=== PATIENT | male | born 1985 | race Caucasian/White ===

== ENCOUNTER 2021-07-11 12:51 | Observation (INO) | payer MEDICAID, SELFPAY ==
[2021-07-11 12:54] VITALS: BP 148/97; PULSE 63; RESP 15; TEMP 36.2; O2SAT 100; BMI 27.1
--- NOTE | 2021-07-11 13:11 | EX.ED.SAOD ---
HPI History of Present Illness Chief Complaint: Substance Abuse Narrative Narrative: 35-year-old male presenting for detox from heroin. He states he also uses methamphetamine and marijuana. Patient last used heroin yesterday. He last used methamphetamine 2 days ago. Patient states that he is restless currently. He took Suboxone earlier which she feels may have precipitated withdrawal. Patient states he snorts drugs and does not inject. PFSH PFSH Home Medications NK 07/11/21 [History Last Taken Unknown] Allergy/AdvReac Type Severity Reaction Status Date / Time Penicillins [PCN] Allergy PT UNSURE Verified 07/11/21 12:52 OF REACTION tramadol Allergy Other Verified 07/11/21 12:52 Social History Smoking Status: Former smoker ROS ROS ED Constitutional Constitutional ED: Denies chills, fever(s) or sweats Eyes Eyes: Denies blurry vision or diplopia ENT ENT ED: Denies rhinorrhea or sore throat Cardiovascular Cardiovascular: Denies chest pain, palpitations or racing heartbeat Respiratory/Chest Respiratory/Chest: Denies cough, dyspnea or sputum Gastrointestinal Gastrointestinal: Denies abdominal pain, diarrhea, nausea or vomiting Genitourinary Genitourinary ED: Denies dysuria Musculoskeletal Musculoskeletal: Denies arthralgias or myalgias Integumentary Denies abscess or rash Neurologic Neurologic: Denies headache(s) or paresthesias Psychiatric Psychiatric: Denies suicidal ideation or suicidal thoughts EXAM Physical Exam Const Vital Signs: 07/11/21 12:54 Temperature 97.1 F L Temperature Source Temporal Pulse Rate 63 Respiratory Rate 15 Blood Pressure 148/97 H Blood Pressure Mean 114 Pulse Ox 100 Oxygen Delivery Method Room Air Positive well nourished General Appearance ED: NAD; Negative for pallor HEENT Reports normocephalic, head/scalp atraumatic and moist mucous membranes atraumatic Eyes PERRL and EOMs intact bilaterally Neck no lymphadenopathy and supple Chest Wall inspection of chest normal and palpation of chest normal Resp normal respiratory effort and clear to auscultation bilaterally Auscultation: Negative for rales, rhonchi or wheezes Cardio regular rate and regular rhythm GI normal to inspection, nondistended, normoactive bowel sounds and non-distended Auscultation: normoactive bowel sounds Palpation: soft Narrative: Deferred Extremity normal to inspection General Extremety ED: Yes edema and tenderness General Extremity: edema Neuro oriented x3 and CN's II-XII intact bilaterally Sensorium / Orientation: alert Motor Exam: strength 5/5 throughout Psych mental status grossly normal Attitude: No agitated Skin no rashes or lesions noted and no wounds General Skin Exam: Negative for jaundice or pallor MDM MDM MDM Narrative Medical decision making narrative: Patient presenting for detox. I will obtain blood work and urine. Patient is medically stable at this time. We will plan to admit the patient after medically cleared. Patient's blood work is unremarkable. Urine drug screen is negative except for cannabinoids. Patient discussed with hospitalist for admission. Transferred in stable condition. Impression: 1. Opioid detox Lab Data Attestation: I reviewed the patient's lab results. Labs: Laboratory Results - last 24 hr 07/11/21 07/11/21 07/11/21 13:03 13:05 13:05 WBC 9.1 RBC 5.09 Hgb 15.2 Hct 45.9 MCV 90.2 MCH 29.9 MCHC 33.1 RDW Std Deviation 39.9 RDW Coeff of Karolina 12.1 Plt Count 290 MPV 9.5 Immature Gran % (Auto) 0.200 Neut % (Auto) 88.7 H Lymph % (Auto) 7.3 L [place] % (Auto) 3.1 Eos % (Auto) 0.3 Baso % (Auto) 0.4 Absolute Neuts (auto) 8.0 H Absolute Lymphs (auto) 0.66 L Nucleated RBC % 0 Sodium Potassium Chloride Carbon Dioxide Anion Gap BUN Creatinine Estim Creat Clear Calc Est GFR (MDRD) Af Amer Est GFR (MDRD) Non-Af BUN/Creatinine Ratio Glucose Calcium Total Bilirubin AST ALT Alkaline Phosphatase Total Protein Albumin Globulin Albumin/Globulin Ratio Urine Opiates Screen NEGATIVE Urine Methadone Screen NEGATIVE Ur Barbiturates Screen NEGATIVE Ur Phencyclidine Scrn NEGATIVE Ur Amphetamines Screen NEGATIVE U Methamphetamin-MDMA NEGATIVE U Benzodiazepines Scrn NEGATIVE Urine Cocaine Screen NEGATIVE U Cannabinoids Screen POSITIVE H Ur Drug Screen Comment Ethyl Alcohol 3.0 07/11/21 13:05 WBC RBC Hgb Hct MCV MCH MCHC RDW Std Deviation RDW Coeff of Karolina Plt Count MPV Immature Gran % (Auto) Neut % (Auto) Lymph % (Auto) [place] % (Auto) Eos % (Auto) Baso % (Auto) Absolute Neuts (auto) Absolute Lymphs (auto) Nucleated RBC % Sodium 137 Potassium 3.8 Chloride 103 Carbon Dioxide 30.0 Anion Gap 4 L BUN 10 Creatinine 0.80 Estim Creat Clear Calc 138.76 Est GFR (MDRD) Af Amer 138 Est GFR (MDRD) Non-Af 114 BUN/Creatinine Ratio 12.4 Glucose 141 H Calcium 9.0 Total Bilirubin 0.50 AST 25 ALT 26 Alkaline Phosphatase 105 Total Protein 7.6 Albumin 3.7 Globulin 3.9 Albumin/Globulin Ratio 0.9 Urine Opiates Screen Urine Methadone Screen Ur Barbiturates Screen Ur Phencyclidine Scrn Ur Amphetamines Screen U Methamphetamin-MDMA U Benzodiazepines Scrn Urine Cocaine Screen U Cannabinoids Screen Ur Drug Screen Comment Ethyl Alcohol Discharge Plan Triage Chief Complaint: Substance Abuse ED Provider: Ed Logan Dx/Rx/DC Orders Primary Care Provider: Care Physician,No Primary
[2021-07-11 13:15] LABS: Absolute Lymphocyte Count 0.66 X10^3/uL (0.83-4.51); Basophil# 0.04 X10^3/uL; Basophil% 0.4 % (0-1); Eosinophil# 0.03 X10^3/uL; Eosinophils% 0.3 % (0-5); Hematocrit 45.9 % (40-54); Hemoglobin 15.2 g/dL (13.0-16.5); Lymphocyte # 0.66 X10^3/ul (0.83-4.51); Lymphocyte % 7.3 % (19-41); Mean Corp Hgb Conc 33.1 g/dL (32-36); Mean Corpuscular Hgb 29.9 pg (27.0-32.0); Mean Corpuscular Volume 90.2 fL (80-94); Mean Platelet Vol. 9.5 fl (6.2-12.0); Monocyte# 0.28 X10^3/uL; Monocyte% 3.1 % (0-10); NRBC Flagged by Analyzer 0 % (0-5); Neutrophil # 8.04 X10^3/uL (2.7-7.7); Neutrophil % 88.7 % (47-70); Platelet Count 290 K/mm3 (150-450); RBC Distribution Width CV 12.1 % (11.6-14.6); RBC Distribution Width SD 39.9 fl (35.1-43.9); Red Blood Count 5.09 M/mm3 (4.6-6.2); White Blood Count 9.1 K/mm3 (4.4-11.0)
[2021-07-11 13:25] LABS: Amphetamine Urine VISTA NEGATIVE (<1000 ng/mL); Barbiturate Urine VISTA NEGATIVE (< 200 ng/mL); Benzodiazepine Urine VISTA NEGATIVE (< 200 ng/mL); Cocaine Urine VISTA NEGATIVE (< 300 ng/mL); Ecstacy Urine VISTA NEGATIVE (< 500 ng/mL); Methadone Urine VISTA NEGATIVE (< 300 ng/mL); PCP Urine VISTA NEGATIVE (< 25 ng/mL); THC Urine VISTA POSITIVE (< 50 ng/mL); Vista UDS pH Range 7
[2021-07-11 13:28] LABS: ALB/GLOB Ratio 0.9 RATIO (0.9-2.4); AST(SGOT) 25 U/L (15-37); Alanine Aminotransfer ALT/SGPT 26 U/L (16-61); Albumin, Serum 3.7 g/dL (3.2-5.0); Alkaline Phosphatase 105 U/L (45-117); Anion Gap 4 (5-15); BUN 10 mg/dL (7-18); BUN/Creat Ratio 12.4 RATIO (10-20); Chloride 103 mmol/L (98-107); EST Glomerular Filtration Rate 114 mL/min (>60); Est Glom Filt Rate - Afr Amer 138 mL/min (>60); Estimated Creatinine Clearance 138.76 ml/min; Globulin 3.9 g/dL (2.2-4.2); Glucose 141 mg/dL (74-106); Potassium 3.8 mmol/L (3.5-5.1); Protein, Total 7.6 g/dL (6.4-8.2); Sodium Level 137 mmol/L (136-145)
--- NOTE | 2021-07-11 13:49 | HP.PCM.HOS_ITS ---
HPI - General General Date of Admission: 07/11/21 Date of Service: 07/11/21 Chief Complaint: Acute Heroin Withdrawal HPI Narrative The patient is a 35 y/o M w/ PMHx: Polysubstance abuse including Heroin which she reports only snorting with usage of up to 10 g daily progressively increasing over the last 3 years who presents to the [facility] ED on 07/11/21 w/ noted acute opiate withdrawal onset starting on day of presentation following last do se the day prior specifically at 11 PM with abdominal generalized cramping, severe body aches and pains, rhinorrhea, piloerection, fatigue, restless leg as well as notable diaphoresis. Patient interested in attaining clean status and notes that he is never been treated for opiate abuse prior. Work-up in the ED included T 97.1 temporally, heart rate 63, BP 140/97, respiratory rate 15, on her percent room air, CBC with WC 9.1, hemoglobin 15.2, platelet 290 with left shift with mild of PD, CMP with glucose 141 otherwise not marked appearing, UDS with positive cannabis, negative for any opiates, ethyl alcohol 3. [facility] Medical History (Updated 07/11/21 @ 20:[address] Mercy Mora MD) Anxiety Depression Hepatitis Substance abuse Substance use Home Medications NK 07/11/21 [History Last Taken Unknown] Allergy/AdvReac Type Severity Reaction Status Date / Time Penicillins [PCN] Allergy PT UNSURE Verified 07/11/21 12:52 OF REACTION tramadol Allergy Other Verified 07/11/21 12:52 Family History (Updated 07/11/21 @ 20:[address] Mercy Mora MD) Mother CVA (cerebral vascular accident) Hypertension Substance abuse Father CVA (cerebral vascular accident) Hypertension Substance abuse no surgical history Social History (Updated 07/11/21 @ 20:[address] Mercy Mora MD) Smoking Status: Former smoker how long ago did patient quit smoking: Quit ~ 5 months prior, smoked 1 ppd since teen. alcohol intake: never substance use type: heroin ROS ROS Narrative Admission Review of Systems: CONSTITUTIONAL: No weight loss, fever, +chills, weakness or fatigue. HEENT: Eyes: No visual loss, blurred vision, double vision or yellow sclerae. Ears, Nose, Throat: No hearing loss, sneezing, congestion, runny nose or sore throat. SKIN: No rash or itching, lesions, wounds. CARDIOVASCULAR: No chest pain, chest pressure or chest discomfort, palpitations, edema, orthopnea, syncopal events. RESPIRATORY: No shortness of breath, cough or sputum, wheezing, hemoptysis. GASTROINTESTINAL: + anorexia, nausea without vomiting, abdominal pain, No diarrhea, melena, BRBPR. GENITOURINARY: No dysuria, frequency, urgency or retention. NEUROLOGICAL: No headache, dizziness, syncope, paralysis, ataxia, numbness or tingling in the extremities, focal weakness, change in bowel or bladder control, seizure. MUSCULOSKELETAL: + muscle, back pain, joint pain or stiffness. HEMATOLOGIC: No anemia, bleeding or bruising. LYMPHATICS: No enlarged nodes. No history of splenectomy. PSYCHIATRIC: + history of depression or anxiety. ENDOCRINOLOGIC: + reports of sweating, cold or heat intolerance. No polyuria or polydipsia. ALLERGIES: No history of asthma, hives, eczema or rhinitis. Vital Signs Vital Signs Vital Signs: 07/11/21 12:54 Temperature 97.1 F L Temperature Source Temporal Pulse Rate 63 Respiratory Rate 15 Blood Pressure 148/97 H Blood Pressure Mean 114 Pulse Ox 100 Oxygen Delivery Method Room Air Weight Weight: 200 lb Body Mass Index (BMI) 27.1 Physical Exam Narrative Physical Examination: General: Awake, alert, oriented x 3 and cooperative, laying in the ED bed, restless, coated in sweat, evident withdrawal. Skin: Normal color, normal turgor, no icterus, no cyanosis. HEENT: AT/NC, EOMI, PERRLA, dry MM, no carotid bruits or JVD noted. Lungs: Diminished, greater bases, appropriate effort, no rales, ronchi or wheezing. Heart: Mildly bradycardic with regular rhythm; no gallop, rub audible. Abdomen: Soft, mild generalized discomfort with palpation with no rebound or guarding, ND, hyperactive BS, no HSM. Extremities: No cyanosis, clubbing, or edema. Neurological: Patient awake, alert, oriented as noted, cognitive function intact; pupils equally reactive to light and accommodation, cranial nerves II-X II grossly normal, moving all 4 extremities, no focal deficits, strength moderately global decrease secondary to acute presentation. Psychiatric: Affect appears restless, fatigued, no acute evidence of depressive or anxiety feelings. Results Lab / Micro Data Result Diagrams: 07/11/21 13:05 07/11/21 13:05 Labs: Laboratory Results - last 24 hr 07/11/21 13:03: Urine Opiates Screen NEGATIVE, Urine Methadone Screen NEGATIVE, Ur Barbiturates Screen NEGATIVE, Ur Phencyclidine Scrn NEGATIVE, Ur Amphetamines Screen NEGATIVE, U Methamphetamin-MDMA NEGATIVE, U Benzodiazepines Scrn NEGATIVE, Urine Cocaine Screen NEGATIVE, U Cannabinoids Screen POSITIVE H, Ur Drug Screen Comment 07/11/21 13:05: WBC 9.1, RBC 5.09, Hgb 15.2, Hct 45.9, MCV 90.2, MCH 29.9, MCHC 33.1, RDW Std Deviation 39.9, RDW Coeff of Karolina 12.1, Plt Count 290, MPV 9.5, Immature Gran % (Auto) 0.200, Neut % (Auto) 88.7 H, Lymph % (Auto) 7.3 L, [place] % (Auto) 3.1, Eos % (Auto) 0.3, Baso % (Auto) 0.4, Absolute Neuts (auto) 8.0 H, Absolute Lymphs (auto) 0.66 L, Nucleated RBC % 0 07/11/21 13:05: Ethyl Alcohol 3.0 07/11/21 13:05: Sodium 137, Potassium 3.8, Chloride 103, Carbon Dioxide 30.0, Anion Gap 4 L, BUN 10, Creatinine 0.80, Estim Creat Clear Calc 138.76, Est GFR (MDRD) Af Amer 138, Est GFR (MDRD) Non-Af 114, BUN/Creatinine Ratio 12.4, Glucose 141 H, Calcium 9.0, Total Bilirubin 0.50, AST 25, ALT 26, Alkaline Phosphatase 105, Total Protein 7.6, Albumin 3.7, Globulin 3.9, Albumin/Globulin Ratio 0.9 Assessment & Plan Assessment/Plan (1) Opiate withdrawal: PLAN: The patient is a 35 y/o M w/ PMHx: Polysubstance abuse including Heroin which she reports only snorting with usage of up to 10 g daily progre ssively increasing over the last 3 years who presents to the [facility] ED on 07/11/21 w/ noted acute opiate withdrawal onset. 1. Acute Opiate Withdrawal: Will admit to [place], routine labs including CBC, CMP, urine for drug screen obtained in the ED, will initiate and continue on protocol with tapering course of Subutex, as needed tylenol, ibuprofen, bowel regimen, gabapentin, Bentyl, Vistaril, methocarbamol, clonidine, PRN nightly trazodone for insomnia, IV fluids, IV antiemetics. Once patient clinically improved and completion of taper nearing will plan consultation with case management for transition to next level of rehabilitation care. 2. Polysubstance Abuse: Patient denies any specific IV drug abuse, notes only snorting but per discussion with patient given significant polysubstance use wi lling to have HIV and hepatitis panel obtained. Discussed that if hepatitis positive, patient currently not candidate for hep C treatment currently as needs to be clean, sober x 6 months, documented attendance NA or AA meetings, counseling and ongoing negative drug screens. 3. Former Tobacco Abuse: Encouraged continued tobacco cessation as patient noted quitting approximately 5 months prior. 4. Anxiety and Depression: Not on regimen, likely contributing to usage of opiates as noted, would benefit from ongoing counseling with 180. 5. DVT prophylaxis: Low risk, encourage ambulation. Charges/Coding Visit Charges Inpatient E&M: 73398 Init Hosp L3
--- NOTE | 2021-07-11 14:22 | CM.ED ---
SW Note Referral Source: Case Find Referral Reason: [facility] program SW met with patient in his room. Patient is interested in detox. Patient said that he last used yesterday and he used heroin. Reports use of 8-10 grams of heroin a day. He reports his use of meth is a 8 ball. Patient was educated on the [facility] program and rules and voices agreement and understanding. Patient reports he is linked with [facility]. SW called Oumar at [facility] and left a message for her regarding patient and his admission to [facility]. No further SW needs at this time. SW will remain available. Plan: [facility]
[2021-07-11 15:19] VITALS: BP 115/70; PULSE 63; RESP 16; TEMP 25.5; O2SAT 98
[2021-07-11 16:05] LABS: HIV - WCH Non-Reactive (Nonreactive)
[2021-07-11 17:21] VITALS: BMI 27.1
[2021-07-11 17:27] VITALS: BP 124/66; PULSE 60; RESP 16; TEMP 36.9; O2SAT 98
[2021-07-11] MEDS: Gabapentin 300 MG Capsule PO (17:40)
[2021-07-11] MEDS: Ondansetron 8 MG Tablet PO (17:40)
[2021-07-11] MEDS: Dicyclomine 10 MG Capsule 20 MG PO (17:40)
[2021-07-11] MEDS: Acetaminophen 325 MG Tablet 650 MG PO (17:40)
[2021-07-11] MEDS: cloNIDine HCl 0.1 MG Tablet PO (17:41)
[2021-07-11] MEDS: Methocarbamol 750 MG Tablet 1500 MG PO (17:41)
[2021-07-11] MEDS: Buprenorphine HCl 2 MG TAB.SUBL SL (18:27)
[2021-07-11 20:41] VITALS: BP 124/85; PULSE 54; RESP 16; TEMP 36.8; O2SAT 96
[2021-07-11] MEDS: Lactated Ringers 1,000 ML 125 ML IV (20:50)
[2021-07-12] MEDS: Buprenorphine HCl 2 MG TAB.SUBL SL ×3 (02:23→18:17)
[2021-07-12 02:25] VITALS: BP 123/72; PULSE 58; RESP 16; TEMP 36.8; O2SAT 99
[2021-07-12] MEDS: Ibuprofen 600 MG Tablet PO ×2 (06:15→21:45)
--- NOTE | 2021-07-12 07:45 | PN.HOSP_ITS ---
Subjective Subjective Patient seen and examined. He has no complaints and review of systems is otherwise negative. He has remained hemodynamically stable. Objective Data Objective Data Vital Signs: Vital Signs Temp Pulse Resp BP Pulse Ox 98.3 F 58 L 16 123/72 H 99 07/12/21 02:25 07/12/21 02:25 07/12/21 02:25 07/12/21 02:25 07/12/21 02:25 Oxygen Delivery Method Room Air Weight: 200 lb Body Mass Index (BMI) 27.1 Intake & Output: Intake and Output for Last 24 Hours 07/10/21 07/11/21 07/12/21 23:59 23:59 23:59 Intake Total 250 / 250 1300 / 1300 Balance 250 / 250 1300 / 1300 Lab / Micro Data Result Diagrams: 07/11/21 13:05 07/11/21 13:05 Labs: Laboratory Results - last 24 hr 07/11/21 13:03: Urine Opiates Screen NEGATIVE, Urine Methadone Screen NEGATIVE, Ur Barbiturates Screen NEGATIVE, Ur Phencyclidine Scrn NEGATIVE, Ur Amphetamines Screen NEGATIVE, U Methamphetamin-MDMA NEGATIVE, U Benzodiazepines Scrn NEGATIVE, Urine Cocaine Screen NEGATIVE, U Cannabinoids Screen POSITIVE H, Ur Drug Screen Comment 07/11/21 13:05: WBC 9.1, RBC 5.09, Hgb 15.2, Hct 45.9, MCV 90.2, MCH 29.9, MCHC 33.1, RDW Std Deviation 39.9, RDW Coeff of Karolina 12.1, Plt Count 290, MPV 9.5, Immature Gran % (Auto) 0.200, Neut % (Auto) 88.7 H, Lymph % (Auto) 7.3 L, [place] % (Auto) 3.1, Eos % (Auto) 0.3, Baso % (Auto) 0.4, Absolute Neuts (auto) 8.0 H, Absolute Lymphs (auto) 0.66 L, Nucleated RBC % 0 07/11/21 13:05: Ethyl Alcohol 3.0 07/11/21 13:05: Sodium 137, Potassium 3.8, Chloride 103, Carbon Dioxide 30.0, Anion Gap 4 L, BUN 10, Creatinine 0.80, Estim Creat Clear Calc 138.76, Est GFR (MDRD) Af Amer 138, Est GFR (MDRD) Non-Af 114, BUN/Creatinine Ratio 12.4, Glucose 141 H, Calcium 9.0, Total Bilirubin 0.50, AST 25, ALT 26, Alkaline Phosphatase 105, Total Protein 7.6, Albumin 3.7, Globulin 3.9, Albumin/Globulin Ratio 0.9 07/11/21 14:00: HIV 1&2 Antibody Non-Reactive Physical Exam Const alert, oriented x3 and no apparent distress Exam Limitations: no limitations HEENT head/scalp atraumatic and moist oral mucous membranes Head and Scalp: normocephalic Eyes PERRL and EOMs intact bilaterally Neck no lymphadenopathy Cardio regular rate, regular rhythm, S1 normal heart sound and S2 normal heart sound GI normal to inspection, nondistended, normoactive bowel sounds, soft to palpation, non-tender and non-distended Extremity normal to inspection, full ROM and no clubbing, cyanosis or edema Peripheral Pulses: Yes pulses 2+ throughout and brachial pulses present Skin no rashes or lesions noted Neuro oriented x3 Sensorium / Orientation: awake and alert Psych affect normal Assessment & Plan Assessment/Plan (1) Opiate withdrawal: PLAN: #Acute opioid withdrawal * on opioid withdrawal protocol with subutex * monitor CINA score. * on adjunctive meds for supportive treatment * #Nicotine dependence: on nicotine patch 21mg daily #Anxiety and depression: not on any meds.to follow up with PCP on outpatient ba sis for referral to psychiatry as needed. DVT prophylaxis: low risk, encourage ambulation Charges/Coding Visit Charges Inpatient E&M: 65709 Subs Hosp L2
[2021-07-12 08:25] VITALS: BP 126/72; PULSE 58; RESP 16; TEMP 37.2; O2SAT 99
[2021-07-12] MEDS: Methocarbamol 750 MG Tablet 1500 MG PO ×2 (08:32→21:45)
[2021-07-12] MEDS: hydrOXYzine PAM 25 MG Capsule 50 MG PO (08:33)
[2021-07-12] MEDS: Gabapentin 300 MG Capsule PO (08:33)
--- NOTE | 2021-07-12 11:02 | ADDICTION ---
This data analyst report writer met with PT to conduct ASAM, MSE, AUDIT assessments and to plan for d/c. PT A+Ox4 and participated actively. All assessments completed, faxed to [facility] and placed in PT's chart. PT plans to f/u with individual counselor at [facility] in [facility] for follow-up counseling services. PT did not indicate a need for transportation post d/c from [facility].
[2021-07-12 14:52] VITALS: BP 111/76; PULSE 62; RESP 18; TEMP 36.9; O2SAT 99
--- NOTE | 2021-07-12 16:18 | CHAPLAIN ---
Type of Pastoral Visit _x__ Initial Visit ___ Follow-up Visit ___ On-call Visit ___ General Patient Visit ___ Spiritual Assessment ___ Family Conference ___ Bereavement ___ Rapid Response ___ Code Blue ___ Other (describe below) Pastoral Care Referral From _x__ Patient ___ Family ___ Nurse ___ Physician ___ Route Deliverer ___ Rejogger ___ Other (describe below) Sacrament/Intervention _x__ Active listening ___ Anointing ___ Shinto ___ Bereavement ___ Communion _x__ Adwoa exploration ___ _x__ Life review _x__ Prayer ___ Reconciliation ___ Sacrament of Sick _x__ Supportive presence ___ Wedding ___ Other (describe below) Pastoral Comments patient repeatedly reports his desire to get off the drugs and stop what he is doing; pt concern is his legal troubles; pt plan is to go to rehab for help; pt states his mother and girlfriend are his support and that I must stay away from the people that I've been with before; pt is open to spiritual support; pt welcomes prayer and future visits
[2021-07-12 21:31] VITALS: BP 129/81; PULSE 58; RESP 18; TEMP 36.8; O2SAT 100
[2021-07-12] MEDS: traZODone 100 MG Tablet PO (21:45)
[2021-07-13] MEDS: Buprenorphine HCl 2 MG TAB.SUBL SL ×2 (03:23→10:55)
[2021-07-13] MEDS: Acetaminophen 325 MG Tablet 650 MG PO (03:23)
[2021-07-13 03:24] VITALS: BP 120/85; PULSE 58; RESP 18; TEMP 36.6; O2SAT 98
--- NOTE | 2021-07-13 07:49 | PN.HOSP_ITS ---
Subjective Subjective Patient seen and examined. He has no complaints and is tolerating the detox process well. Review of systems is otherwise negative. He has remained hemodynamically stable, apart from mild asymptomatic bradycardia. Objective Data Objective Data Vital Signs: Vital Signs Temp Pulse Resp BP Pulse Ox 98 F 58 L 18 120/85 H 98 07/13/21 03:24 07/13/21 03:24 07/13/21 03:24 07/13/21 03:24 07/13/21 03:24 Oxygen Delivery Method Room Air Weight: 200 lb Body Mass Index (BMI) 27.1 Intake & Output: Intake and Output for Last 24 Hours 07/11/21 07/12/21 07/13/21 23:59 23:59 23:59 Intake Total 250 / 250 2950 / 2950 400 / 400 Balance 250 / 250 2950 / 2950 400 / 400 Lab / Micro Data Result Diagrams: 07/11/21 13:05 07/11/21 13:05 Physical Exam Const alert, oriented x3 and no apparent distress Exam Limitations: no limitations HEENT head/scalp atraumatic and moist oral mucous membranes Head and Scalp: normocephalic Eyes PERRL and EOMs intact bilaterally Neck no lymphadenopathy Resp normal respiratory effort, no retractions, no use of accessory muscles and clear to auscultation bilaterally Cardio regular rate, regular rhythm, S1 normal heart sound and S2 normal heart sound GI normal to inspection, nondistended, normoactive bowel sounds, soft to palpation, non-tender and non-distended Extremity normal to inspection, full ROM and no clubbing, cyanosis or edema Peripheral Pulses: Yes pulses 2+ throughout Skin no rashes or lesions noted Neuro oriented x3 Sensorium / Orientation: awake and alert Psych affect normal Assessment & Plan Assessment/Plan (1) Opiate withdrawal: PLAN: #Acute opioid withdrawal * on opioid withdrawal protocol with subutex * monitor CINA score. * on adjunctive meds for supportive treatment * #Nicotine dependence: on nicotine patch 21mg daily #Anxiety and depression: not on any meds.to follow up with PCP on outpatient basis for referral to psychiatry as needed. DVT prophylaxis: low risk, encourage ambulation Charges/Coding Visit Charges Inpatient E&M: 12315 Subs Hosp L2
[2021-07-13 08:14] VITALS: BP 119/76; PULSE 59; RESP 18; TEMP 36.8; O2SAT 98
--- NOTE | 2021-07-13 16:12 | PCM.DC.SUM ---
Providers Date of Admission: 07/11/21 Primary Care Physician: Sonali Primary Care Phys Reason For Visit: ACUTE OPIATE WITHDRAWAL Diagnosis Discharge Diagnosis (1) Opiate withdrawal: Status: Acute Code(s): F11.23 - Opioid dependence with withdrawal Medications at Discharge Home Medications NK 07/11/21 Hospital Course Operations None Procedures None Summary of Care Provided Minutes Spent on Discharge: 45 Hospital Course: Patient is a 35-year-old male with a past medical history as outlined which includes anxiety and depression as well as substance abuse mainly heroin. He was admitted through the ED on 07/11/2021 for acute opiate withdrawal. Patient snorted heroin on admission about 10 g daily and progressively increasing over the past 3 years. His last dose was on the day before admission. He complained of abdominal cramps and severe body aches and pains as well as rhinorrhea and fatigue. He was admitted and managed for acute opioid withdrawal. Patient was started on opioid withdrawal protocol with buprenorphine. Patient tolerated 2 days of the 3-day detox process and his hospital course was uncomplicated. However on 07/13/2021, patient signed out AGAINST MEDICAL ADVICE. Patient was seen and examined prior to him signing out AGAINST MEDICAL ADVICE. He was comfortable then and had no complaints and had no indication of signing out AGAINST MEDICAL ADVICE at that time but change his mind later. Review of systems otherwise negative. Labs and vitals reviewed. Home medication reviewed and reconciled. Physical Exam Const alert, oriented x3 and no apparent distress General Appearance: cooperative and comfortable Exam Limitations: no limitations HEENT normocephalic, head/scalp atraumatic, hearing grossly normal bilaterally and moist oral mucous membranes Eyes PERRL, EOMs intact bilaterally and conjunctivae normal Neck no lymphadenopathy Resp normal respiratory effort, no retractions, no use of accessory muscles and clear to auscultation bilaterally Cardio regular rate, regular rhythm, S1 normal heart sound and S2 normal heart sound GI normal to inspection, nondistended, normoactive bowel sounds, soft to palpation, non-tender and non-distended Extremity normal to inspection, full ROM and no clubbing, cyanosis or edema Skin no rashes or lesions noted Neuro oriented x3, CN's II-XII intact bilaterally and moves all extremities Sensorium / Orientation: awake and alert Psych affect normal Weight / BMI Weight Weight: 200 lb Body Mass Index (BMI) 27.1 ABG / Lab / Microbiology Data Result Diagrams: 07/11/21 13:05 07/11/21 13:05 D/C Instructions Discharge Diet: No restrictions Discharge Activity: Return to Normal Activity Meaningful Use Info Meaningful Use Diagnoses (Choose all that apply): None applicable Discharge Plan Admission Admit Date/Time: 07/11/21 13:53 Primary Reason for Your Visit: acute opioid withdrawal Attending Provider: Vy Morillo Primary Care Provider: Care Physician,No Primary Discharge Orders/Prescriptions Prescriptions: No Action NK RF: 0 Referrals / Follow Up: Care Physician,No Primary [Primary Care Provider] - Disposition Disposition (needs filled in before D/C Order can be placed): Against Medical Advice Charges/Coding Visit Charges Inpatient E&M: 57163 Disch Hosp
[2021-07-14 14:09] LABS: HEPATITIS B SURFACE AG Negative (Negative); Hepatitis B Core AB IgM Negative (Negative); Hepatitis B Core Ab Total Negative (Negative); Hepatitis Be Ab Negative (Negative); Hepatitis Be Ag Negative (Negative)
[2021-07-14 17:27] LABS: Hep B Surface Antibodies Non Reactive (.)
== END 2021-07-13 15:17 | disposition left against medical advice (07) | DRG 770 ==
LOC: ED 13:19 → MS3 07-12 07:10
PROVIDERS: Admitting Provider Family Medicine; Emergency Provider Student in an Organized Health Care Education/Training Program; Visit Provider Student in an Organized Health Care Education/Training Program
DX: F11.23 Opioid dependence with withdrawal (principal); F12.90 Cannabis use, unspecified, uncomplicated; F15.90 Other stimulant use, unspecified, uncomplicated; Z87.891 Personal history of nicotine dependence; Z86.19 Personal history of other infectious and parasitic diseases; R00.1 Bradycardia, unspecified
CPT/HCPCS: 80053; 80307; 82077; 85025; 86703; 86704; 86705; 86706; 86707; 86803; 87340; 87350; 96360; 96361; 99218; 99283; J7120; G0378

== ENCOUNTER 2022-10-16 22:02 | Emergency (ER) | payer OTHER, MEDICAID, SELFPAY ==
[2022-10-16 22:03] VITALS: BP 134/89; PULSE 87; RESP 15; TEMP 36.9; O2SAT 98; BMI 32.5
--- NOTE | 2022-10-16 22:22 | EX.ED.VIS.UR ---
HPI HPI - URI History of Present Illness Chief Complaint: Shortness of Breath Detail of Chief Complaint: Cough and shortness of breath Informant: patient Narrative Narrative: Patient presents with a cough x3 days. Patient at times bringing up some green phlegm. He does not smoke but does vape. He complains of chest pain with cough. He denies recent travel or surgery. He denies hemoptysis. Patient denies fever. He took a home COVID test yesterday that was negative. Patient denies sick contacts other than his significant other's kids had COVID a couple weeks ago. ROS ROS ED Review of Systems ROS Unobtainable: other Constitutional Constitutional ED: Reports lethargy; Denies chills, fever(s), sweats or weight loss Eyes Eyes: Denies blurry vision, change in vision or diplopia ENT ENT ED: Denies rhinorrhea or sore throat Cardiovascular Cardiovascular: Reports chest pain; Denies orthopnea or racing heartbeat Respiratory/Chest Respiratory/Chest: Reports cough and dyspnea; Denies dyspnea on exertion, orthopnea or sputum Gastrointestinal Gastrointestinal: Denies abdominal pain, diarrhea, nausea or vomiting Genitourinary Genitourinary ED: Denies dysuria, hematuria or urinary frequency Musculoskeletal Musculoskeletal: Reports back pain; Denies arthralgias, myalgias or neck pain Integumentary Denies abscess, Abrasions or rash Neurologic Neurologic: Denies headache(s) or weakness Psychiatric Psychiatric: Denies anxiety, depression or suicidal thoughts Endocrine Endocrinology: Denies polydipsia, polyphagia or polyuria Hematologic/Lymphatic Hematologic/Lymphatic: Denies easy bleeding, easy bruising or lymphadenopathy Allergic/Immunologic Allergic/Immunologic ED: Denies mouth swelling, tongue swelling or urticaria PFSH PFS Medical History (Updated 10/16/22 @ 23:[address] Ghislaine Sanchez, DO) Anxiety Depression Hepatitis Opiate withdrawal Substance abuse Substance use Home Medications benzonatate 200 mg capsule 200 mg PO TID PRN cough #20 caps 10/16/22 [Rx Last Taken Unknown] buprenorphine HCl 8 mg sublingual tablet 8 mg sublingual DAILY 10/16/22 [History Last Taken Unknown] sertraline 50 mg tablet (Zoloft) 100 mg PO DAILY 10/16/22 [History Last Taken Unknown] Allergy/AdvReac Type Severity Reaction Status Date / Time Penicillins [PCN] Allergy PT UNSURE Verified 10/16/22 22:36 OF REACTION tramadol Allergy Other Verified 10/16/22 22:36 Family History (Updated 07/11/21 @ 20:[address] Mercy Mora MD) Mother CVA (cerebral vascular accident) Hypertension Substance abuse Father CVA (cerebral vascular accident) Hypertension Substance abuse Social History (Updated 07/11/21 @ 20:[address] Mercy Mora MD) Smoking Status: Former smoker how long ago did patient quit smoking: Quit ~ 5 months prior, smoked 1 ppd since teen. alcohol intake: never substance use type: heroin EXAM Physical Exam Const Vital Signs: 10/16/22 22:03 10/16/22 22:38 10/16/22 22:40 Temperature 98.4 F Temperature Source Temporal Pulse Rate 87 80 Respiratory Rate 15 19 H Respiratory Effort Labored Respiratory Depth Shallow Respiratory Pattern Normal Blood Pressure 134/89 H 136/72 H Blood Pressure Mean 104 93 Pulse Ox 98 94 Oxygen Delivery Method Room Air Room Air Room Air 10/16/22 22:41 Temperature 98.4 F Temperature Source Temporal Pulse Rate 80 Respiratory Rate 19 H Respiratory Effort Respiratory Depth Respiratory Pattern Blood Pressure 136/72 H Blood Pressure Mean 93 Pulse Ox 96 Oxygen Delivery Method Room Air Positive well nourished and well developed General Appearance ED: well developed and NAD HEENT Reports TM's clear and moist mucous membranes normocephalic and atraumatic; Negative for trauma or tenderness Tympanic Membrane ED: Yes TM's clear Eyes PERRL and EOMs intact bilaterally General Eye ED: Negative for pale conjunctiva or scleral icterus Neck no lymphadenopathy, supple and no JVD General: Negative for tenderness Chest Wall inspection of chest normal and palpation of chest normal Chest: Negative for tenderness Resp normal respiratory effort and clear to auscultation bilaterally Effort and Inspection: Negative for respiratory distress or pain with movement Auscultation: Negative for rhonchi, wheezes or diminished lung sounds Cardio regular rate, regular rhythm, S1 normal heart sound, S2 normal heart sound and no murmurs Peripheral Pulses: pulses 2+ throughout GI normal to inspection, nondistended, normoactive bowel sounds, soft to palpation, non-tender, non-distended and no masses Back/Spine no CVA tenderness and no thoracic nor lumbar tenderness Extremity normal to inspection General Extremety ED: Negative for edema General Extremity: Negative for edema Neuro oriented x3, CN's II-XII intact bilaterally, no sensory deficits noted and gait normal Sensorium / Orientation: awake, alert, oriented to person, oriented to place and oriented to time Motor Exam: strength 5/5 throughout and strength abnormal Psych mental status grossly normal Skin no rashes or lesions noted and no wounds MDM MDM MDM Narrative Medical decision making narrative: Patient had a rapid' COVID test and influenza test that were both negative. Chest x-ray obtained 1 view interpreted by myself no acute disease process. Official report from radiology pending. This point I suspect likely viral upper respiratory infection. I will write him for Sanket Block. Patient to use ibuprofen or Tylenol for discomfort. Patient advised to follow-up with primary care physician senior controls engineer for no doc within next 3 to 5 days. He is advised to return if increasing shortness of breath or condition should worsen anyway. Lab Data Attestation: I reviewed the patient's lab results. Radiography Diagnostic Testin view chest x-ray obtained interpreted by myself no acute disease process. Official report from radiology pending. Discharge Plan Triage Chief Complaint: Shortness of Breath ED Provider: Ghislaine Sanchez Dx/Rx/DC Orders Clinical Impression: Viral URI Instructions: ED URI, Viral, No Abx (Adult) Prescriptions: New benzonatate 200 mg capsule 200 mg PO TID PRN (Reason: cough) Qty: 20 0RF No Action sertraline [Zoloft] 50 mg tablet 100 mg PO DAILY buprenorphine HCl 8 mg tablet, sublingual 8 mg SUBLINGUAL DAILY Label Comments: Place 1 1/2 tablet under tongue once a day Alternate 1 1/2 tablet under tongue every other day with 1 tablet Primary Care Provider: Care Physician,No Primary Referrals: Erasto Mckay MD [Med Staff - Active Staff] - 3-5 Days Care Physician,No Primary [Primary Care Provider] - Disposition Disposition: Home, Self Care
--- NOTE | 2022-10-16 22:26 | RAD_ITS ---
STUDY: X-RAY CHEST REASON FOR EXAM: Male, 36 years old. Cough. Short of breath. Chest pain. TECHNIQUE: 1 frontal view COMPARISON: None. FINDINGS: LUNGS: No apparent pneumothorax, pneumonia, pleural effusion, or edema. MEDIASTINUM, KODY: Cardiac silhouette, kody and mediastinal contours are within normal limits. BONES: No acute osseous abnormality. UPPER ABDOMEN: No evidence of free air under the diaphragm. RAD/Chest 1 View (Portable) IMPRESSION: Negative chest radiograph. Electronically Signed: Rayray Jean-Baptiste MD at 23:38 EST Reading Location ID and State: [facility] [place] Tel , Service support ,
[2022-10-16 22:38] VITALS: O2SAT 94
[2022-10-16 22:40] VITALS: BP 136/72; PULSE 80; RESP 19; O2SAT 94
[2022-10-16 22:41] VITALS: BP 136/72; PULSE 80; RESP 19; TEMP 36.9; O2SAT 96
[2022-10-16] MEDS: Benzonatate 100 MG Capsule 200 MG PO (22:43)
[2022-10-16 23:40] VITALS: BP 107/60; PULSE 96; RESP 18; O2SAT 91
== END 2022-10-16 23:51 | disposition home or self-care (01) ==
PROVIDERS: Emergency Provider Emergency Medicine; Visit Provider Emergency Medicine
DX: J06.9 Acute upper respiratory infection, unspecified (principal); F41.9 Anxiety disorder, unspecified; F32.A Depression, unspecified; Z79.899 Other long term (current) drug therapy; Z87.891 Personal history of nicotine dependence
CPT/HCPCS: 71045; 87428; 99283